=== PATIENT | female | born 1995 | race Caucasian/White ===

== ENCOUNTER 2023-05-05 05:14 | Outpatient (CLI) | payer MEDICAID, SELFPAY ==
[2023-05-05 10:55] LABS: Panorama Kit Sent via Fed Ex
[2023-05-05 11:17] LABS: Glucose,1 Hr (Glucola) 103 mg/dL (80-140)
[2023-05-05 11:18] LABS: HCT 34.4 % (36.0-46.0); MCH 31.7 pg (27.0-33.0); MCHC 34.9 % (32.0-36.0); MCV 91 fL (80-95); Platelet Count 470 10^3/uL (130-400); RBC 3.78 10^6/uL (3.93-5.22); RDW-SD 39.6 fL; WBC 15.39 10^3/uL (4.4-10.8)
[2023-05-05 11:32] LABS: TSH (W/Ref FT4) 0.26 uIU/mL (0.36-3.74)
[2023-05-05 11:47] LABS: FREE T4 0.86 ng/dL (0.76-1.46)
[2023-05-29 14:09] LABS: Result Summary NEGATIVE; Specimen WB Whole Blood
== END 2023-05-05 05:15 | disposition home or self-care (01) ==
LOC: LBO 05:14
PROVIDERS: Visit Provider Advanced Practice Midwife
DX: M06.9 Rheumatoid arthritis, unspecified (principal); Z34.91 Encounter for supervision of normal pregnancy, unspecified, first trimester; Z68.31 Body mass index [BMI] 31.0-31.9, adult
CPT/HCPCS: 36415; 81220; 81222; 82950; 85027; 86850; 86900; 86901; 84439; 84443

== ENCOUNTER 2023-05-05 11:16 | Outpatient (REF) | payer MEDICAID, SELFPAY ==
--- NOTE | 2023-05-05 10:00 | PAPFT_PTH ---
PATIENT: Nohemi Rodriguez LOC: [facility] U#:[id number] AGE/SX: 27/F ROOM: RE05/05/[address]: Tonia Camara CNM : 1995 BED: DIS: 05/05/2023 SPEC #: [id number] RECD: 05/05/23 12:51 STATUS: JASVIR EUGENE #: [id number] CONRAD: 05/05/23 10:[address]: Vanesa Cedeno DEPT: [facility] Cytology RECD BY: Karen Armenta ENTERED: 05/05/23 12:51 SP TYPE: PAPFT OT DR: Unknown,Unknown Tissues: 1 - CX/ENDOCX FOR PAP SMEARS Procedures: PAP THIN PREP/UVM Screening Comments: [id number] (CHLAMYDIA/GC)
[2023-05-05 12:28] LABS: *AMPHETAMINES SCREEN URINE Negative (Negative); *BARBITURATES SCREEN URINE Negative (Negative); *BENZODIAZEPINES SCREEN URINE Negative (Negative); Cannabinoids THC Positive (Negative); Cocaine Screen,Urine Negative (Negative); METHADONE URINE SCREEN Negative (Negative); OPIATES URINE SCREEN Negative (Negative); Tricyclic Antidepressants Negative (Negative)
[2023-05-06 15:20] LABS: Chlamydia Result Negative (Negative); GC Result Negative (Negative)
[2023-05-10 11:31] LABS: Buprenorphine Negative ng/mL (Cutoff: 5.0); Norbuprenorphine Negative ng/mL (Cutoff: 2.5)
[2023-05-13 11:27] LABS: Fentanyl Confirmation Negative ng/mL (<2); Norfentanyl Confirmation Negative ng/mL (<10)
== END 2023-05-05 11:17 | disposition home or self-care (01) ==
LOC: LBN 11:16
PROVIDERS: Obstetrics & Gynecology Gynecology; Visit Provider Advanced Practice Midwife
DX: F12.90 Cannabis use, unspecified, uncomplicated (principal); Z34.91 Encounter for supervision of normal pregnancy, unspecified, first trimester; Z72.0 Tobacco use
CPT/HCPCS: 80307; 80348; 80354; 87491; 87591; 88142

== ENCOUNTER 2023-06-23 15:48 | Outpatient (CLI) | payer MEDICAID, SELFPAY ==
[2023-06-23 16:30] LABS: TSH (W/Ref FT4) 0.54 uIU/mL (0.36-3.74)
== END 2023-06-23 15:49 | disposition home or self-care (01) ==
LOC: LBO 15:49
PROVIDERS: Visit Provider Advanced Practice Midwife
DX: R79.89 Other specified abnormal findings of blood chemistry (principal)
CPT/HCPCS: 36415; 84443

== ENCOUNTER 2023-08-19 05:13 | Outpatient (CLI) | payer MEDICAID, SELFPAY ==
[2023-08-19 10:49] LABS: HCT 29.9 % (36.0-46.0); MCH 31.4 pg (27.0-33.0); MCHC 33.4 % (32.0-36.0); MCV 94 fL (80-95); Platelet Count 419 10^3/uL (130-400); RBC 3.18 10^6/uL (3.93-5.22); RDW 12.9 % (11.7-14.6); WBC 12.11 10^3/uL (4.4-10.8)
[2023-08-19 11:14] LABS: Glucose,1 Hr (Glucola) 79 mg/dL (80-140)
== END 2023-08-19 05:14 | disposition home or self-care (01) ==
LOC: LBO 05:14
PROVIDERS: Visit Provider Advanced Practice Midwife
DX: Z34.90 Encounter for supervision of normal pregnancy, unspecified, unspecified trimester (principal)
CPT/HCPCS: 36415; 82950; 85027

== ENCOUNTER → 2023-09-30 02:03 | Outpatient (CLI) | payer MEDICAID, SELFPAY ==
--- NOTE | 2023-09-30 07:00 | DI.US_ITS ---
Exam(s) US OB MIRANDA WEIGHT EXAM: US OB MIRANDA WEIGHT CLINICAL HISTORY: medication exposure in ,RHEUMATOID ARTHRITIS,M06.9. TECHNIQUE: Transabdominal obstetrical ultrasound was performed. COMPARISON: No exams were available for comparison FINDINGS: There is a single viable intrauterine gestation with cardiac activity identified-116 bpm The fetus is presently in cephalic position . Amniotic fluid: There is a normal amount of amniotic fluid with an MIRANDA of 18.54cm. Placental location: The placenta is anterior grade 2,with no evidence of placenta previa.Distance fro m the tip of the placenta to the internal cervical os is [address] this at approximately 33 weeks and 5 days gestational age, implying OCTAVIA of 11/13/2023. BPD measures 34 weeks and 1 day HC measures 35 weeks and 0 days AC measures 33 weeks and 1 day FL measures 32 weeks and 1 day Estimated weight is 2120 gm-4 pounds 11 ounces Fetus is at the 48th percentile on the Hadlock scale. IMPRESSION:: Viable 3rd trimester gestation, as described above. DATA REPOSITORY:
== END ==
PROVIDERS: Visit Provider Advanced Practice Midwife
DX: M06.9 Rheumatoid arthritis, unspecified (principal); Z34.93 Encounter for supervision of normal pregnancy, unspecified, third trimester
CPT/HCPCS: 76816

== ENCOUNTER 2023-10-14 11:11 | Outpatient (REF) | payer MEDICAID, SELFPAY ==
[2023-10-14 13:37] LABS: *AMPHETAMINES SCREEN URINE Negative (Negative); *BARBITURATES SCREEN URINE Negative (Negative); *BENZODIAZEPINES SCREEN URINE Negative (Negative); Cannabinoids THC Positive (Negative); Cocaine Screen,Urine Negative (Negative); METHADONE URINE SCREEN Negative (Negative); OPIATES URINE SCREEN Negative (Negative)
[2023-10-14 13:38] LABS: Tricyclic Antidepressants Negative (Negative)
[2023-10-15 12:13] LABS: Fentanyl Scr w/Rfx Confirm Negative ng/mL (<1)
[2023-10-18 11:49] LABS: Buprenorphine Negative ng/mL (Cutoff: 5.0); Norbuprenorphine Negative ng/mL (Cutoff: 2.5)
== END 2023-10-14 11:12 | disposition home or self-care (01) ==
LOC: LBN 11:11
PROVIDERS: Visit Provider Advanced Practice Midwife
DX: P04.9 Newborn affected by maternal noxious substance, unspecified (principal)
CPT/HCPCS: 80307; 80348

== ENCOUNTER 2023-10-31 11:32 | Outpatient (REF) | payer MEDICAID, SELFPAY | END 2023-10-31 11:33 | disposition home or self-care (01) | LOC: LBN 11:32 | PROVIDERS: Visit Provider Advanced Practice Midwife | DX: Z34.93 Encounter for supervision of normal pregnancy, unspecified, third trimester (principal); Z3A.37 37 weeks gestation of pregnancy; Z36.85 Encounter for antenatal screening for Streptococcus B | CPT/HCPCS: 87081 ==

== ENCOUNTER 2023-11-15 07:47 | Outpatient (CLI) | payer MEDICAID, SELFPAY ==
[2023-11-15 10:54] VITALS: BP 122/79; PULSE 101; TEMP 36.5
--- NOTE | 2023-11-15 11:03 | PDOC.NST_ITS ---
Date of service: 11/15/23 Time of Service: 10:45 NST Evaluation Reason for NST Reasons for Nonstress Test: OTHER, SEE COMMENT Reason for NST Other: Labor check, ? IOL Gestational Age Gestational Age in Weeks and Days: 39 Weeks and 3Days Test and Monitor Explained Test/Monitor Explained: Test Explained, Monitor Explained and Patient Verbalized Understanding Vital Signs Blood Pressure: 122/79 Pulse: 101 Temperature: 97.7 F NST Information Date on Monitor: 11/15/23 Time on Monitor: 10:07 Date off Monitor: 11/15/23 Time off Monitor: 10:41 Total Time on Monitor: 34 NST Interventions: None Contraction Frequency: None NST Evaluation Patient States Movement: Present FHR Baseline: 125 Variability: Moderate 6-25 bpm Accelerations: 15x15 Decelerations: None NST Results: Reactive Note Ultrasound Done: N/A. NST Note Note: NST is reactive and reassuring. VE done per patient request as she is hoping for IOL if favorable due to GBS + status making her anxious. VE closed, 70% VTX -3 ROP. I reviewed that IOL is not best option today. She is agreeable to this and does not want a lengthy induction. She has plan to be seen in the office on 11/16 and be reassessed. We discussed signs of labor, ROM and when to contact websphere consultant provider. We discussed GBS and how it can become infection but does not in most cases. Risks and benefits reviewed. Feels reassured and is discharged ambulatory without concerns. JAIR NST Reviewed and Verified by: Araceli Ferrell
[2023-11-15 11:07] VITALS: BP 122/79; PULSE 101; TEMP 36.5
== END 2023-11-15 10:50 ==
LOC: BCD 07:49 → OBS 10:22 → BCD 10:23 → OBS 10:26
PROVIDERS: PCP Advanced Practice Midwife; Visit Provider Advanced Practice Midwife
DX: O47.1 False labor at or after 37 completed weeks of gestation (principal); Z3A.39 39 weeks gestation of pregnancy
CPT/HCPCS: 59025

== ENCOUNTER 2023-11-19 08:03 | Inpatient (IN) | payer MEDICAID, SELFPAY ==
[2023-11-19] VITALS (64 sets, daily range): BP systolic 111–124; BP diastolic 63–76; PULSE 0–107; RESP 16–20; TEMP 36.6–36.9; O2SAT 97–99
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
[2023-11-19] MEDS: miSOPROStol 25 MCG TAB 50 MCG PO (09:12)
[2023-11-19 09:31] LABS: HCT 30.4 % (36.0-46.0); HGB 10.2 g/dL (11.2-15.7); MCH 30.6 pg (27.0-33.0); MCHC 33.6 % (32.0-36.0); MCV 91 fL (80-95); MPV 9.6 fL (8.0-11.0); Platelet Count 419 10^3/uL (130-400); RBC 3.33 10^6/uL (3.93-5.22); RDW 13.9 % (11.7-14.6); RDW-SD 46.5 fL; WBC 12.11 10^3/uL (4.4-10.8)
[2023-11-19 10:11] LABS: *AMPHETAMINES SCREEN URINE Negative (Negative); *BARBITURATES SCREEN URINE Negative (Negative); *BENZODIAZEPINES SCREEN URINE Negative (Negative); Cannabinoids THC Positive (Negative); Cocaine Screen,Urine Negative (Negative); METHADONE URINE SCREEN Negative (Negative); OPIATES URINE SCREEN Negative (Negative)
[2023-11-19 10:12] LABS: Tricyclic Antidepressants Negative (Negative)
[2023-11-19] MEDS: miSOPROStol 25 MCG TAB PO (15:57)
--- NOTE | 2023-11-19 20:10 | W.PM.OBNL1 ---
Date of service: 11/19/23 Time of Service: 20:10 Informed Consent Informed Consent: Induction of Labor and Risk,Benefits,Alternatives Discussed Pelvic Exam Dilation: 3 Effacement (%): 50 station: -3 Position: ROP Cervix Position: posterior Consistency: medium BISHOPS Score(Cervical Ripeness Score): 4 Contractions Monitor Mode: External Contraction Frequency(min): q2-4 Contraction Duration(sec): 40-60 Intensity: Mild/Moderate Fetus A Monitor: External (US) Heart Rate Baseline: 130 Variability: Moderate (6-25 BPM) Categories: Category I Accelerations: 15 X 15 Decelerations: None Amniotic Membrane Status: Intact Assessment and Plan Assessment and plan (1) Encounter for elective induction of labor: Status: Acute Assessment and plan: A: Cervical ripening, elective IOL, multipara, GBS+ Misoprostel x2 today, mehta score has advanced from 1 to 4 Pt is comfortable, vital signs stable, category 1 tracing P: Options to continue induction process discussed with pt Will proceed with cervidil insertion and EFM for the night Switch from toco/u/s to Novii for pt comfort GBS prophylaxis and epidural anesthesia with early active labor onset Dr. Cedeno aware of plan of care and in agreement Anticipate Objective Abnormal lab results 11/19/23 11/19/23 Range/Units 09:00 09:20 WBC 12.11 H (4.4-10.8) 10^3/uL RBC 3.33 L (3.93-5.22) 10^6/uL Hgb 10.2 L (11.2-15.7) g/dL Hct 30.4 L (36.0-46.0) % Plt Count 419 H (130-400) 10^3/uL Ur THC Screen Positive A (Negative) Temp Pulse Resp BP Pulse Ox 98.2 F 107 H 16 111/72 97 11/19/23 19:14 11/19/23 19:14 11/19/23 19:14 11/19/23 19:14 11/19/23 19:14 Laboratory Results WBC 12.11 10^3/uL (4.4-10.8) H 11/19/23 09:00 RBC 3.33 10^6/uL (3.93-5.22) L 11/19/23 09:00 Hgb 10.2 g/dL (11.2-15.7) L 11/19/23 09:00 Hct 30.4 % (36.0-46.0) L 11/19/23 09:00 MCV 91 fL (80-95) 11/19/23 09:00 MCH 30.6 pg (27.0-33.0) 11/19/23 09:00 MCHC 33.6 % (32.0-36.0) 11/19/23 09:00 RDW 13.9 % (11.7-14.6) 11/19/23 09:00 Plt Count 419 10^3/uL (130-400) H 11/19/23 09:00 MPV 9.6 fL (8.0-11.0) 11/19/23 09:00 Urine Opiates Screen Negative (Negative) 11/19/23 09:20 Urine Methadone Screen Negative (Negative) 11/19/23 09:20 Ur Barbiturates Screen Negative (Negative) 11/19/23 09:20 Ur Tricyclics Screen Negative (Negative) 11/19/23 09:20 Ur Amphetamines Screen Negative (Negative) 11/19/23 09:20 U Benzodiazepines Scrn Negative (Negative) 11/19/23 09:20 Urine Cocaine Screen Negative (Negative) 11/19/23 09:20 Ur THC Screen Positive (Negative) A 11/19/23 09:20 ABO/Rh O Positive 11/19/23 09:00 Antibody Screen NEGATIVE 11/19/23 09:00 Vital Signs Reviewed: Yes Subjective Interval history since last seen: Throughout the day pt has ambulated, rested, moved about the room, visited with family, tolerated PO intake well. Contractions have increased in strength and frequency but not consistently. No bleeding, no ROM.
[2023-11-19] MEDS: Dinoprostone-CERVICAL 10 MG VSUPP VG (20:42)
[2023-11-20] VITALS (184 sets, daily range): BP systolic 110–129; BP diastolic 66–77; PULSE 0–142; RESP 16–18; TEMP 36.5–36.9; O2SAT 98–100; BMI 32.9
[2023-11-20] MEDS: miSOPROStol 25 MCG TAB PO (09:19)
--- NOTE | 2023-11-20 10:35 | W.PM.OBNL1 ---
Date of service: 11/20/23 Time of Service: 10:35 Informed Consent Informed Consent: Induction of Labor and Risk,Benefits,Alternatives Discussed Pelvic Exam station: -1 Vaginal Exam Presentation: Cephalic Comments: unable to reach cervix due to patient discomfort with exam and cervix is very posterior Contractions Monitor Mode: External Contraction Frequency(min): every 5 min Contraction Duration(sec): 50-60 Intensity: Mild/Moderate Fetus A Monitor: External (US) Heart Rate Baseline: 130 Presentation: Cephalic Variability: Moderate (6-25 BPM) Categories: Category I FHR Rhythm: Regular Accelerations: 15 X 15 Decelerations: None Amniotic Membrane Status: Intact Assessment and Plan Assessment and plan (1) Encounter for elective induction of labor: Status: Acute Assessment and plan: Continue to assess labor pattern and will attempt cervical check when labor progresses. Patient was given the option of returning home to rest or starting pitocin or continuing cervical ripening with misoprostol. She requested a break from monitoring so misoprostol will be administered so she may have a break from the monitor. Will re-examine in 4 hours when next misoprostol dose is due. She plans epidural when necessary. (2) Group B streptococcal infection during : Status: Acute Assessment and plan: Will start saline lock now and administer antibiotics for GBS prophylaxis when signs of active labor occur. Objective Temp Pulse Resp BP Pulse Ox 98.2 F 142 H 18 129/77 100 11/20/23 10:01 11/20/23 10:34 11/20/23 10:01 11/20/23 10:01 11/20/23 10:01 Laboratory Results WBC 12.11 10^3/uL (4.4-10.8) H 11/19/23 09:00 RBC 3.33 10^6/uL (3.93-5.22) L 11/19/23 09:00 Hgb 10.2 g/dL (11.2-15.7) L 11/19/23 09:00 Hct 30.4 % (36.0-46.0) L 11/19/23 09:00 MCV 91 fL (80-95) 11/19/23 09:00 MCH 30.6 pg (27.0-33.0) 11/19/23 09:00 MCHC 33.6 % (32.0-36.0) 11/19/23 09:00 RDW 13.9 % (11.7-14.6) 11/19/23 09:00 Plt Count 419 10^3/uL (130-400) H 11/19/23 09:00 MPV 9.6 fL (8.0-11.0) 11/19/23 09:00 Urine Opiates Screen Negative (Negative) 11/19/23 09:20 Urine Methadone Screen Negative (Negative) 11/19/23 09:20 Ur Barbiturates Screen Negative (Negative) 11/19/23 09:20 Ur Tricyclics Screen Negative (Negative) 11/19/23 09:20 Ur Amphetamines Screen Negative (Negative) 11/19/23 09:20 U Benzodiazepines Scrn Negative (Negative) 11/19/23 09:20 Urine Cocaine Screen Negative (Negative) 11/19/23 09:20 Ur THC Screen Positive (Negative) A 11/19/23 09:20 ABO/Rh O Positive 11/19/23 09:00 Antibody Screen NEGATIVE 11/19/23 09:00 Subjective Patient Reports: No new Complaints Interval history since last seen: Nohemi slept well last night She reports that her contractions feel stronger since she awoke. Results Hemoglobin/Hematocrit: Hgb 10.2 g/dL (11.2-15.7) L 11/19/23 09:00 Hct 30.4 % (36.0-46.0) L 11/19/23 09:00 Abnormal Lab Findings: Abnormal Labs 11/19/23 11/19/23 09:00 09:20 WBC 12.11 H RBC 3.33 L Hgb 10.2 L Hct 30.4 L Plt Count 419 H Ur THC Screen Positive A
[2023-11-20 12:31] LABS: Fentanyl Scr w/Rfx Confirm Negative ng/mL (<1)
--- NOTE | 2023-11-20 13:57 | W.PM.OBNL1 ---
Date of service: 11/20/23 Time of Service: 13:58 Informed Consent Informed Consent: Induction of Labor and Risk,Benefits,Alternatives Discussed Pelvic Exam Dilation: 0.5 Effacement (%): 20 station: -2 Cervix Position: posterior Consistency: soft Vaginal Exam Presentation: Cephalic Contractions Monitor Mode: External Contraction Frequency(min): every 5-6 Contraction Duration(sec): 40-60 Intensity: Mild/Moderate Fetus A Monitor: External (US) Heart Rate Baseline: 130 Variability: Moderate (6-25 BPM) Categories: Category I FHR Rhythm: Regular Accelerations: 15 X 15 Decelerations: None Amniotic Membrane Status: Intact Assessment Note: Difficult exam due to patients discomfort and very posterior cervix. I was able to palpate the internal os which was 0.5 cms. The cervix is soft and long Assessment and Plan Assessment and plan (1) Group B streptococcal infection during : Status: Acute Assessment and plan: Will start antibiotics with signs of active labor. (2) Encounter for elective induction of labor: Status: Acute Assessment and plan: Discussed options with Nohemi of returning home or continuing cervical ripening. She would like to continue cervical ripening and will start misoprostol 50 mcg PO every 4 hours x 3 doses. Anticipate . Objective Temp Pulse Resp BP Pulse Ox 98.4 F 97 H 16 110/66 99 11/20/23 12:56 11/20/23 12:57 11/20/23 12:56 11/20/23 12:56 11/20/23 12:57 Laboratory Results WBC 12.11 10^3/uL (4.4-10.8) H 11/19/23 09:00 RBC 3.33 10^6/uL (3.93-5.22) L 11/19/23 09:00 Hgb 10.2 g/dL (11.2-15.7) L 11/19/23 09:00 Hct 30.4 % (36.0-46.0) L 11/19/23 09:00 MCV 91 fL (80-95) 11/19/23 09:00 MCH 30.6 pg (27.0-33.0) 11/19/23 09:00 MCHC 33.6 % (32.0-36.0) 11/19/23 09:00 RDW 13.9 % (11.7-14.6) 11/19/23 09:00 Plt Count 419 10^3/uL (130-400) H 11/19/23 09:00 MPV 9.6 fL (8.0-11.0) 11/19/23 09:00 Urine Opiates Screen Negative (Negative) 11/19/23 09:20 Urine Methadone Screen Negative (Negative) 11/19/23 09:20 Urine Fentanyl Screen Negative ng/mL (<1) 11/19/23 09:20 Ur Barbiturates Screen Negative (Negative) 11/19/23 09:20 Ur Tricyclics Screen Negative (Negative) 11/19/23 09:20 Ur Amphetamines Screen Negative (Negative) 11/19/23 09:20 U Benzodiazepines Scrn Negative (Negative) 11/19/23 09:20 Urine Cocaine Screen Negative (Negative) 11/19/23 09:20 Ur THC Screen Positive (Negative) A 11/19/23 09:20 ABO/Rh O Positive 11/19/23 09:00 Antibody Screen NEGATIVE 11/19/23 09:00 Subjective Patient Reports: No new Complaints Interval history since last seen: Nohemi continues to have mild to mod strength contractions which have not increased in intensity. Results Hemoglobin/Hematocrit: Hgb 10.2 g/dL (11.2-15.7) L 11/19/23 09:00 Hct 30.4 % (36.0-46.0) L 11/19/23 09:00 Abnormal Lab Findings: Abnormal Labs 11/19/23 11/19/23 09:00 09:20 WBC 12.11 H RBC 3.33 L Hgb 10.2 L Hct 30.4 L Plt Count 419 H Ur THC Screen Positive A
[2023-11-20] MEDS: miSOPROStol 25 MCG TAB 50 MCG PO (14:13)
--- NOTE | 2023-11-20 14:58 | ANES.PREOP_ITS ---
General Info Date of Service Date Performed: 11/20/23 Height: 5 ft 2 in Weight: 81.647 kg Body Mass Index (BMI): 32.9 Meds Allergies and Home Medications Allergies Allergy/AdvReac Type Severity Reaction Status Date / Time adalimumab (From Humira) Allergy Hives Unverified 11/17/23 12:34 Home Medication ?Medication ?Instructions ?Recorded Blood Builder 1 tab PO DAILY #30 tabs 05/05/23 PNV 153-FA 400 mcg-om3 35 mg-dha tab PO 05/05/23 25 mg-epa 5 mg-fish oil chew tablet ( Gummies) certolizumab pegol 400 mg/2 mL 400 mg (2 mL) subcut Q2W #1 ea 05/28/23 (200 mg/mL x2) subcutaneous syringe kit (Cimzia) ferrous sulfate 325 mg (65 mg 325 mg PO DAILY #60 tabs 08/19/23 iron) tablet ferrous sulfate 325 mg (65 mg mg PO 11/20/23 iron) tablet,delayed release Current Visit Medications: Current Medications Generic Name Dose Route Start Last Admin Trade Name Freq PRN Reason Stop Dose Admin Dinoprostone 10 mg 11/19/23 20:15 11/19/23 20:42 Dinoprostone-Cervical 10 Mg Vsupp VG 10 mg DIRECTED AMELIE Administration Ringer's Solution 1,000 mls @ 200 mls/hr 11/20/23 09:00 IV INFUSION [facility] IV Miscellaneous Supplies 1 each 11/20/23 09:00 Iv Access IV DIRECTED AMELIE Misoprostol 50 mcg 11/20/23 14:00 11/20/23 14:13 Misoprostol 25 Mcg Tab PO 50 mcg Q4H AMELIE Administration Sodium Chloride 0 ml 11/20/23 08:56 Normal Saline Flush 10 Ml Syr IVP PRN PRN Sodium Chloride 0 ml 11/20/23 20:00 Normal Saline Flush 10 Ml Syr IVP BID AMELIE Sodium Chloride 0 ml 11/20/23 08:56 Normal Saline 10 Ml Vial IJ DIRECTED PRN Terbutaline Sulfate 0.25 mg 11/19/23 08:41 Terbutaline 1 Mg/Ml Vial SC PRN PRN Zolpidem Tartrate 10 mg 11/20/23 21:00 Zolpidem 5 Mg Tab PO 11/21/23 06:00 2100 AMELIE PFSH Active Problems Active Problems: Problem Status Onset Code Group B streptococcal infection during Acute O98.819, B95.1 Encounter for elective induction of labor Acute Z34.90 Anemia affecting Acute O99.019 Current nicotine vaping on some days Acute Z72.0 Marijuana use during Acute O99.320, F12.90 BMI 31.0-31.9,adult Acute Z68.31 Rahman's cyst of knee Acute M71.20 Drug exposure, gestational Acute P04.9 Acute Z34.90 Rheumatoid arthritis Chronic M06.9 Medical History Medical History (Updated 11/20/23 @ 10:40 by Araceli Dubon CNM) Low TSH level History of anemia Family history of thyroid disease in grandmother gr-mother had thyroidectomy History of depression Treated with lorazepam and buspirone History of depression no meds currently Tobacco Smoking/Tobacco Use Status: Current every day Tobacco Type: e-cigarettes Alcohol Alcohol Intake: never Substance Use Substance use type: marijuana Prental History History 2 2 Para 1 Hx # Term Pregnancies 1 Multiple births 0 Hx # Pregnancies 0 Ectopic pregnancies 0 AB induced 0 Hx Number of Living Children 1 AB spontaneous 0 Past Pregnancies Del. Date GA/Weeks # Preg Succ Route Wgt Sex Labor Lgth Anesth esia Location [facility] 01/27/18 40 No Yes vaginal 3288.545 g Male >18 hrs [place], [place] Delivery Date: 01/27/18 Last Updated by: Tonia Camara Epidural didn't work, pitocin oct after stalling at 7 cm, persistent OP, Rolando Vital Signs and Lab Results Vital Signs Most Recent Vital Signs in EMR: Most Recent Vital Signs Temp Pulse Resp BP Pulse Ox 36.9 C 97 H 16 110/66 99 11/20/23 12:56 11/20/23 12:57 11/20/23 12:56 11/20/23 12:56 11/20/23 12:57 Lab Results 11/19/23 09:00 Blood Type / Crossmatch: 2 Antibody Screen NEGATIVE 11/19/23 Complete Blood Count: 2 White Blood Count 12.11 10^3/uL (4.4-10.8) H 11/19/23 09:00 Red Blood Count 3.33 10^6/uL (3.93-5.22) L 11/19/23 09:00 Hemoglobin 10.2 g/dL (11.2-15.7) L 11/19/23 09:00 Hematocrit 30.4 % (36.0-46.0) L 11/19/23 09:00 Platelet Count 419 10^3/uL (130-400) H 11/19/23 09:00 Complete Metabolic Panel: 2 No Data to Display Liver Function Panel: 2 No Data to Display Coagulation Panel: 2 No Data to Display Cardiac Panel: 2 No Data to Display Arterial Blood Gas: 2 No Data to Display Venous Blood Gas: 2 No Data to Display Pancreas Panel: 2 No Data to Display Thyroid Panel: 2 No Data to Display Infectious Disease: 2 No Data to Display Blood Cultures: 2 No Data to Display Toxicology Panel: 2 Urine Amphetamines Screen Negative (Negative) 11/19/23 09:20 Urine Benzodiazepines Screen Negative (Negative) 11/19/23 09:2 0 Urine Barbiturates Screen Negative (Negative) 11/19/23 09:20 Urine Cocaine Screen Negative (Negative) 11/19/23 09:20 Urine Methadone Screen Negative (Negative) 11/19/23 09:20 Urine Opiates Screen Negative (Negative) 11/19/23 09:20 Ur Tricyclic Antidepressants Screen Negative (Negative) 09:20 Ur Tetrahydrocannabinol (THC) Scrn Positive (Negative) A 11/18 09:20 Panel: 2 No Data to Display Anesthesia Assessment and Plan Anesthesia History Personal History: No History of Anesthesia Complications Family History: No Family History of Anesthesia Complications Exercise Tolerance Exercise Tolerance: Metabolic Equivalents>4 Pertinent Negatives Pertinent Negatives: No Symptoms of GERD Cardiac & Pulmonary Exam Cardiac Exam: Normal S1/S2 Heart Sounds Pulmonary Exam: Clear Bilateral Breath Sounds Cardiac and Pulmonary Comment:: Vapes both nicotine and THC. Implantable Cardiac Device Does patient have a Pacemaker or an ICD?: No Airway Exam Known Difficult Airway: No Mallampati Class: 2 Mouth Opening: Normal (> 3cm) Thyromental Distance: Greater than 3 cm Neck Range of Motion: Full ROM Neck Circumference: Normal Teeth Condition: Normal Dentition ASA Classification ASA Score: ASA 2 Emergency Case?: No NPO Status NPO Status: NPO Small Non-Fatty Meal >6 hours Status Status: Confirmed (Full term) Anesthesia Plan Resuscitation Status: Full Code Anesthesia Technique: Labor Epidural Airway Planned: Natural Airway Monitors Used: Standard Monitors Preoperative Comments:: with history of prior Epidural that pt states did not work well. Details are unclear and patient does not remember specific events after placement. Questions answered. Consented for labor epidural and/or SAB if needed for . Trav Bradley, MAULIK
--- NOTE | 2023-11-20 18:36 | DSE_ITS ---
Date of service: 11/20/23 Time of Service: 18:36 DS: Diagnosis Discharge Diagnosis (1) Group B streptococcal infection during : Status: Acute Asessment and Plan: IV disconnected and Nohemi is discharged (2) Encounter for elective induction of labor: Status: Acute Asessment and Plan: Nohemi received misoprostol 50 mcg after going outside for a walk. Her contractions have not increased in frequency. heart rate 130s and category 1. Contractions irregular, every 4-5 minutes and mild to moderates strength. membranes are intact. She is feeling tired and discouraged. We discussed the option of continuing cervical ripening or pitocin or going home to rest and resuming the cervical ripening when she is ready. She and her partner wish to return home to rest. She was offered ambien 10 mg for rest tonight and she wishes to take that. She was instructed to return with strong regular contractions or ruptured membranes. She will call tomorrow when she awakes and we will discuss when she would like to return for cervical ripening if spontaneous labor does not occur. Discharge Plan Disposition Patient Disposition: Home Condition: Good Discharge Details Reason For Visit: 40 wks,GBS positive,elective induction Admit Date/Time: 11/19/23 08:03 Admit Provider: Tonia Camara Attending Provider: Tonia Camara Primary Care Provider: Araceli Ferrell Home Meds and New Rx's Prescriptions: No Action Gummies 400 mcg-35 mg- 25 mg-5 mg tablet,chewable 1 tab PO DAILY Blood Builder 1 tab PO DAILY Qty: 30 0RF Cimzia 400 mg/2 mL (200 mg/mL x 2) syringe kit 400 mg subcut Q2W Qty: 1 0RF Rx Instructions: administer as 2 equally divided doses at 2 different sites in abdomen or thigh ferrous sulfate 325 mg (65 mg iron) tablet 325 mg PO DAILY Qty: 60 4RF ferrous sulfate 325 mg (65 mg iron) tablet,delayed release (DR/EC) 325 mg PO DAILY Patient Comments: TAKE 1 TABLET BY MOUTH ONCE DAILY Discharge Instructions Activity:: Activity as Tolerated Equipment/Supplies:: No Equipment Needed Diet:: As Tolerated Discharge Orders Discharge Orders: Discharge Order (Routine); Ordered 11/20/23 Ordered By: Araceli Dubon DS: Summary Time Spent with Patient providing and/or coordinating discharge services: Greater than 30 minutes Status at Discharge Functional status at discharge: independent ambulation Overall status at discharge: patient is back to baseline Mental Status: mental status grossly normal Speech and Movement: speech and movement normal Mood: congruent mood Affect: normal affect Quality:SDOH Health Related Social Needs: No Data to Display Exam Const General: cooperative Resp Effort & Inspection: normal respiratory effort Auscultation: clear to auscultation bilaterally GI Inspection: normal to inspection Palpation: soft and nontender External Female Exam: normal external appearance Speculum Exam - Vagina: normal appearance of the vagina Skin General skin exam: no rashes or lesions noted Extrem General: normal to inspection Psych Mental Status: mental status grossly normal Speech and Movement: speech and movement normal Mood: congruent mood Affect: normal affect DS: Data Vitals/I&O Vitals and I&O: Vital Signs Temperature 98.4 F 11/20/23 18:34 Temperature Source Oral 11/20/23 18:34 Pulse 88 11/20/23 18:34 Pulse Rhythm Regular 11/20/23 07:45 Respiratory Rate 16 11/20/23 18:34 Blood Pressure 124/69 11/20/23 18:34 Blood Pressure Mean 87 11/20/23 18:34 Pulse Oximetry 99 11/20/23 18:34 Oxygen Delivery Method Room Air 11/19/23 08:59 Oxygen Flow Rate 0 11/19/23 08:59 Pain Level 0 11/19/23 08:59 Intake & Output 11/19/23 11/20/23 11/20/23 23:59 11:59 23:59 Intake Total 1000 / 1000 550 / 550 Output Total 1100 / 1600 1000 / 1500 500 / 1500 Balance -100 / -600 -450 / -950 -500 / -950 Weight 180 lb Intake: Oral 1000 / 1000 550 / 550 Output: Urine 1100 / 1600 1000 / 1500 500 / 1500 Other: Urine Color Yellow Pale Pale Yellow Yellow Urine Appearance Clear Clear Clear Urine Odor None None None Voiding Methods Toilet Toilet Toilet Data Completed and Pending Labs on day of discharge: Labs from last 24 hours 11/19/23 09:20 Urine Fentanyl Screen Negative PFSH All Active Problems (Updated 11/20/23 @ 10:40 by Araceli Dubon CNM) Group B streptococcal infection during (Acute) Encounter for elective induction of labor (Acute) Anemia affecting (Acute) Current nicotine vaping on some days (Acute) Marijuana use during (Acute) BMI 31.0-31.9,adult (Acute) Rahman's cyst of knee (Acute) right Drug exposure, gestational (Acute) (Acute) Rheumatoid arthritis (Chronic) Medical History (Updated 11/20/23 @ 10:40 by Araceli Dubon CNM) Low TSH level History of anemia Family history of thyroid disease in grandmother gr-mother had thyroidectomy History of depression Treated with lorazepam and buspirone History of depression no meds currently Family History (Updated 06/23/23 @ 14:43 by Araceli Dubon CNM) Paternal Grandmother Thyroid condition partial thyroidectomy Maternal Grandmother Heart disease Father Hypertension Mother Depression Other Hyperlipidemia Social History (Updated 05/05/23 @ 09:40 by Jeny Eaton RN) Smoking/Tobacco Use Status: Current every day Tobacco Type: e-cigarettes Smoking risk assessment performed?: Yes Alcohol Intake: never Substance use type: marijuana Housing: house Current gender identity: female Do you feel safe at home: Yes Do you feel safe in your relationship?: No Female Reproductive History Menstrual Age of Menarche: 8 Duration of menses: 6-7 days control method: none History History 2 Para 1 Hx # Term Pregnancies 1 Multiple births 0 Hx # Pregnancies 0 Ectopic pregnancies 0 AB induced 0 Hx Number of Living Children 1 AB spontaneous 0 Past Pregnancies Del. Date GA/Weeks # Preg Succ Route Wgt Sex Labor Lgth Anesth esia Location [facility] 01/27/18 40 No Yes vaginal 7 lb 4 oz Male >18 hrs [place], [place] Delivery Date: 01/27/18 Last Updated by: Tonia Camara Epidural didn't work, pitocin oct after stalling at 7 cm, persistent OP, Rolando Time Spent with Patient Time Spent with Patient: 70-84 minutes4 Time was spent: preparing to see the patient(eg.review tests), obtaining and/or reviewing separately otained hiistory, ordering medications,tests, procedures, referring, communicating with other health pet care worker, indepentently interpreting results and counseling the patient
[2023-11-20] MEDS: Zolpidem 5 MG TAB 10 MG PO (18:51)
== END 2023-11-20 18:55 | disposition home or self-care (01) | DRG 833 ==
PROVIDERS: Admitting Provider Advanced Practice Midwife; PCP Advanced Practice Midwife; Visit Provider Advanced Practice Midwife
DX: O99.323 Drug use complicating pregnancy, third trimester (principal); F12.90 Cannabis use, unspecified, uncomplicated; O61.0 Failed medical induction of labor; O99.820 Streptococcus B carrier state complicating pregnancy; O99.343 Other mental disorders complicating pregnancy, third trimester; O99.333 Smoking (tobacco) complicating pregnancy, third trimester; O99.013 Anemia complicating pregnancy, third trimester; O26.893 Other specified pregnancy related conditions, third trimester; D64.9 Anemia, unspecified; Z3A.40 40 weeks gestation of pregnancy; M06.9 Rheumatoid arthritis, unspecified; F41.9 Anxiety disorder, unspecified; F17.290 Nicotine dependence, other tobacco product, uncomplicated
CPT/HCPCS: 36415; 80307; 85027; 86850; 86900; 86901; G0378; J3490

== ENCOUNTER 2023-11-22 16:21 | Outpatient (CLI) | payer MEDICAID, SELFPAY ==
[2023-11-22 17:11] VITALS: BP 128/77; PULSE 106; TEMP 36.7
[2023-11-22 17:12] VITALS: BP 128/77; PULSE 106
[2023-11-22 17:54] VITALS: BP 128/77; PULSE 106; TEMP 36.7
--- NOTE | 2023-11-22 20:55 | W.OBNST ---
Date of service: 11/22/23 Time of Service: 20:56 NST Evaluation Reason for NST Reasons for Nonstress Test: OTHER, SEE COMMENT Reason for NST Other: patient post date Gestational Age Gestational Age in Weeks and Days: 40 Weeks and 3Days Test and Monitor Explained Test/Monitor Explained: Test Explained, Monitor Explained and Patient Verbalized Understanding Vital Signs Blood Pressure: 128/77 Pulse: 106 Temperature: 98.1 F Urine Results Urine Protein: Positive Urine Ketones: Positive Urine Glucose: Negative Urine Blood: Negative NST Information Date on Monitor: 11/22/23 Time on Monitor: 17:13 Date off Monitor: 11/22/23 Time off Monitor: 17:54 Total Time on Monitor: 41 NST Interventions: PO Hydration Contraction Frequency: irrritability noted per toco NST Evaluation Patient States Movement: Present FHR Baseline: 125 Variability: Moderate 6-25 bpm Accelerations: 15x15 Decelerations: None NST Results: Reactive Note Ultrasound Done: N/A. NST Note Note: Pt requesting labor check, reports increased mucous plug-type discharge today with pelvic pressure and occasional contractions. Cvx 2 cm at internal os, not well effaced (30%), posterior, vtx ROP at -3, intact membranes (no change from previous exam 2 days ago) Pt is s/p failed attempt at elective IOL via cervical ripening last week (miso & cervidil x36 hrs) She wishes to return tomorrow morning for pitocin induction trial @ 40+4 wks, has anxiety regarding GBS & logistical concerns (lack of childcare or social supports). Discharged to home. NST Reviewed and Verified by: Tonia Camara
[2023-11-22 21:03] VITALS: BP 128/77; PULSE 106; TEMP 36.7
[2023-11-23 09:36] VITALS: BP 124/77; PULSE 114
[2023-11-23 12:26] VITALS: BP 122/68; PULSE 80
[2023-11-23 14:56] VITALS: BP 127/72; PULSE 73
== END 2023-11-22 17:58 ==
LOC: BCD 16:21 → OBS 16:48
PROVIDERS: PCP Advanced Practice Midwife; Visit Provider Advanced Practice Midwife
DX: O48.0 Post-term pregnancy (principal); Z3A.40 40 weeks gestation of pregnancy
CPT/HCPCS: 59025

== ENCOUNTER 2023-11-23 07:56 | Inpatient (IN) | payer MEDICAID, SELFPAY ==
[2023-11-23 09:38] VITALS: BP 124/77; PULSE 114; RESP 16; TEMP 36.5; O2SAT 99
[2023-11-23] MEDS: DEXTROSE 5%-LACTATED RINGERS 1,000 ML 999 ML IV (10:13)
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
[2023-11-23 11:02] LABS: HCT 28.1 % (36.0-46.0); HGB 9.3 g/dL (11.2-15.7); MCH 30.9 pg (27.0-33.0); MCHC 33.1 % (32.0-36.0); MCV 93 fL (80-95); MPV 9.2 fL (8.0-11.0); Platelet Count 320 10^3/uL (130-400); RBC 3.01 10^6/uL (3.93-5.22); RDW-SD 47.3 fL; WBC 9.45 10^3/uL (4.4-10.8)
[2023-11-23] MEDS: Lactated Ringers 1,000 ML 125 ML IV (11:20)
[2023-11-23] MEDS: Oxytocin/Normal Saline 30 UNIT/500 ML BAG 2 UNITS IV (11:26)
[2023-11-23] MEDS: Normal Saline Flush 10 ML SYR IVP (11:56)
[2023-11-23 12:26] VITALS: BP 122/68; PULSE 80
[2023-11-23 15:00] VITALS: BP 127/72; PULSE 73; RESP 17; TEMP 36.7; O2SAT 99
--- NOTE | 2023-11-23 15:59 | PGE_ITS ---
Date of service: 11/23/23 Time of Service: 15:59 Informed Consent Informed Consent: Induction of Labor (elective) and Risk,Benefits,Alternatives Discussed Pelvic Exam Dilation: 2.5 (internal os not easily reached d/t thickness/positon of cvx but palpated at nearly 3 cm) Effacement (%): 30 station: -3 Position: ROP Cervix Position: posterior Consistency: medium Contractions Monitor Mode: External Contraction Frequency(min): q2-3 Contraction Duration(sec): 50-70 Intensity: Mild/Moderate Fetus A Monitor: External (US) Heart Rate Baseline: 130 Variability: Moderate (6-25 BPM) Categories: Category I Accelerations: 15 X 15 Decelerations: None Amniotic Membrane Status: Intact Assessment and Plan Assessment and plan (1) Encounter for elective induction of labor: Status: Acute Assessment and plan: A: Pitocin @ 10 u/min, regular but mild contraction pattern since 1300 Pt mostly resting in bed or sitting up, comfortable; cat 1 tracing Cvx examined and found unchanged from yesterday P: Continue titrated pitocin infusion & encourage pt to change positions Cephalic station too high for AROM @ this time Monitor for progress, comfort measures as needed Dr. Jack called earlier for update on phone from RN (2) Group B streptococcal infection during : Status: Acute Assessment and plan: PCN prophylaxis planned with active labor onset or ROM (3) Anemia affecting : Status: Acute Assessment and plan: Admission hgb 9.3 Will consider Fe infusion Qualifiers: Trimester: third trimester Qualified Code(s): O99.013 - Anemia complicating , third trimester Objective Abnormal lab results 11/23/23 Range/Units 10:55 RBC 3.01 L (3.93-5.22) 10^6/uL Hgb 9.3 L (11.2-15.7) g/dL Hct 28.1 L (36.0-46.0) % Temp Pulse Resp BP Pulse Ox 98.1 F 73 17 127/72 99 11/23/23 15:00 11/23/23 15:00 11/23/23 15:00 11/23/23 15:00 11/23/23 15:00 Laboratory Results WBC 9.45 10^3/uL (4.4-10.8) 11/23/23 10:55 RBC 3.01 10^6/uL (3.93-5.22) L 11/23/23 10:55 Hgb 9.3 g/dL (11.2-15.7) L 11/23/23 10:55 Hct 28.1 % (36.0-46.0) L 11/23/23 10:55 MCV 93 fL (80-95) 11/23/23 10:55 MCH 30.9 pg (27.0-33.0) 11/23/23 10:55 MCHC 33.1 % (32.0-36.0) 11/23/23 10:55 RDW 14.0 % (11.7-14.6) 11/23/23 10:55 Plt Count 320 10^3/uL (130-400) 11/23/23 10:55 MPV 9.2 fL (8.0-11.0) 11/23/23 10:55 ABO/Rh O Positive 11/23/23 10:55 Antibody Screen NEGATIVE 11/23/23 10:55 Vital Signs Reviewed: Yes Subjective Interval history since last seen: Pt denies being uncomfortable, is not feeling contractions very much though oc casionally she can feel tightening in the upper abdomen. She is keeping to a clear liquid diet, tolerating well, FOB is bedside providing support.
--- NOTE | 2023-11-23 18:21 | W.PM.OBDISCH ---
Date of service: 11/23/23 Time of Service: 18:21 DS: Diagnosis Discharge Diagnosis (1) Encounter for elective induction of labor: Status: Acute Asessment and Plan: Unsuccessful and abbreviated induction attempt. Pt decided to discontinue pitocin induction and return home undelivered. Pt agrees to have appt with MD this week to discuss further induction plans vs scheduled c/s for failed induction x2 (2) Group B streptococcal infection during : Status: Acute (3) Anemia affecting : Status: Acute Discharge Plan Disposition Patient Disposition: Home Condition: Good Discharge Details Reason For Visit: Induction of Labor Admit Date/Time: 11/23/23 09:30 Admit Provider: Tonia Camara Attending Provider: Tonia Camara Primary Care Provider: Araceli Ferrell Hospital Course Hospital Course: Pitocin induction of labor was attempted, after 7 hours of infusion labor was not achieved, pt requests to be discharged to home and await spontaneous labor. Home Meds and New Rx's Prescriptions: No Action Gummies 400 mcg-35 mg- 25 mg-5 mg tablet,chewable 1 tab PO DAILY Blood Builder 1 tab PO DAILY Qty: 30 0RF Cimzia 400 mg/2 mL (200 mg/mL x 2) syringe kit 400 mg subcut Q2W Qty: 1 0RF Rx Instructions: administer as 2 equally divided doses at 2 different sites in abdomen or thigh ferrous sulfate 325 mg (65 mg iron) tablet 325 mg PO DAILY Qty: 60 4RF ferrous sulfate 325 mg (65 mg iron) tablet,delayed release (DR/EC) 325 mg PO DAILY Patient Comments: TAKE 1 TABLET BY MOUTH ONCE DAILY Discharge Instructions Activity:: Activity as Tolerated Equipment/Supplies:: No Equipment Needed Diet:: Normal Diet Discharge Orders Discharge Orders: Discharge Order (Routine); Ordered 11/23/23 Ordered By: Tonia Camara Discharge Data Discharge Date/Time-TO BE ENTERED AT DEPARTURE: 11/23/23 18:20 OB:DS Summary Contraception Discussed Contraception Discussed: No, Status at Discharge Functional status at discharge: independent ambulation Overall status at discharge: patient is back to baseline Mental Status: mental status grossly normal Speech and Movement: speech and movement normal and speech clear Mood: congruent mood Affect: normal affect Quality:SDOH Health Related Social Needs: No Data to Display Exam Physical Exam Vital signs: Temp Pulse Resp BP Pulse Ox 98.1 F 73 17 127/72 99 11/23/23 15:00 11/23/23 15:00 11/23/23 15:00 11/23/23 15:00 11/23/23 15:00 Constitutional Constitutional: no acute distress, average body habitus and cooperative HEENT Exam HEENT Exam: Normal Neck Exam Neck Exam: Normal Respiratory Exam Respiratory Exam: Normal Cardiovascular Exam Cardiovascular Exam: Normal Rectal Exam Rectal Exam: Normal Back/Spine/Pelvis Exam Back Exam: Normal Skin Exam Skin Exam: Normal Neurological Exam Neurological Exam: Normal Psychiatric Exam Psychiatric Exam: Normal PFSH All Active Problems (Updated 11/23/23 @ 16:08 by Tonia Camara) Encounter for elective induction of labor (Acute) Group B streptococcal infection during (Acute) Anemia affecting (Acute) Current nicotine vaping on some days (Acute) Marijuana use during (Acute) BMI 31.0-31.9,adult (Acute) Rahman's cyst of knee (Acute) right Drug exposure, gestational (Acute) (Acute) Rheumatoid arthritis (Chronic) Medical History (Updated 11/23/23 @ 16:08 by Tonia Camara) Low TSH level History of anemia Family history of thyroid disease in grandmother gr-mother had thyroidectomy History of depression Treated with lorazepam and buspirone History of depression no meds currently Family History (Updated 06/23/23 @ 14:43 by Araceli Dubon CNM) Paternal Grandmother Thyroid condition partial thyroidectomy Maternal Grandmother Heart disease Father Hypertension Mother Depression Other Hyperlipidemia Social History (Updated 05/05/23 @ 09:40 by Jeny Eaton RN) Smoking/Tobacco Use Status: Current every day Tobacco Type: e-cigarettes Smoking risk assessment performed?: Yes Alcohol Intake: never Substance use type: marijuana Housing: house Current gender identity: female Do you feel safe at home: Yes Do you feel safe in your relationship?: No Female Reproductive History Menstrual Age of Menarche: 8 Duration of menses: 6-7 days control method: none History History 2 Para 1 Hx # Term Pregnancies 1 Multiple births 0 Hx # Pregnancies 0 Ectopic pregnancies 0 AB induced 0 Hx Number of Living Children 1 AB spontaneous 0 Past Pregnancies Del. Date GA/Weeks # Preg Succ Route Wgt Sex Labor Lgth Anesthesia Location Prov Complic 01/27/18 40 No Yes vaginal 7 lb 4 oz Male >18 hrs [place], [place] Delivery Date: 01/27/18 Last Updated by: Tonia Camara Epidural didn't work, pitocin oct after stalling at 7 cm, persistent OP, Rolando DS: Data Vitals/I&O Vitals and I&O: Vital Signs Temperature 98.1 F 11/23/23 15:00 Temperature Source Oral 11/23/23 15:00 Pulse 73 11/23/23 15:00 Pulse Rhythm Regular 11/23/23 12:10 Respiratory Rate 17 11/23/23 15:00 Respiratory Depth Normal 11/23/23 12:10 Blood Pressure 127/72 11/23/23 15:00 Blood Pressure Mean 90 11/23/23 15:00 Pulse Oximetry 99 11/23/23 15:00 Oxygen Delivery Method Room Air 11/23/23 09:38 Oxygen Flow Rate 0 11/23/23 09:38 Intake & Output 11/22/23 11/23/23 11/23/23 23:59 11:59 23:59 Intake Total 0.933 / 2431.099 2430.166 / 2431.099 Output Total 400 / 1300 900 / 1300 Balance -399.067 / 2376.982 2049.166 / 1131.099 Weight 180 lb Intake: IV 0.933 / 0271.758 9069.166 / 1931.099 Oral 500 / 500 Output: Urine 400 / 1300 900 / 1300 Other: Urine Color Yellow Yellow Urine Appearance Clear Urine Odor None Data Completed and Pending Labs on day of discharge: Labs from last 24 hours 11/23/23 10:55 WBC 9.45 RBC 3.01 L Hgb 9.3 L Hct 28.1 L MCV 93 MCH 30.9 MCHC 33.1 RDW 14.0 Plt Count 320 MPV 9.2 ABO/Rh O Positive Antibody Screen NEGATIVE
== END 2023-11-23 18:20 | disposition home or self-care (01) | DRG 832 ==
PROVIDERS: Admitting Provider Advanced Practice Midwife; PCP Advanced Practice Midwife; Visit Provider Advanced Practice Midwife
DX: O48.0 Post-term pregnancy; O99.13 Other diseases of the blood and blood-forming organs and certain disorders involving the immune mechanism complicating the puerperium; Z3A.40 40 weeks gestation of pregnancy; D64.9 Anemia, unspecified; O26.893 Other specified pregnancy related conditions, third trimester; M06.9 Rheumatoid arthritis, unspecified; O61.0 Failed medical induction of labor
CPT/HCPCS: 36415; 85027; 86850; 86900; 86901; G0378

== ENCOUNTER 2023-11-26 14:09 | Outpatient (CLI) | payer MEDICAID, SELFPAY | END 2023-11-26 14:10 | disposition home or self-care (01) | LOC: LBO 14:10 | PROVIDERS: PCP Advanced Practice Midwife; Visit Provider Obstetrics & Gynecology Gynecology | DX: Z01.818 Encounter for other preprocedural examination (principal) | CPT/HCPCS: 36415; 86850; 86900; 86901 ==

== ENCOUNTER 2023-11-28 10:35 | Inpatient (IN) | payer MEDICAID, SELFPAY ==
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
[2023-11-28] VITALS (10 sets, daily range): BP systolic 111–120; BP diastolic 75–82; PULSE 63–86; RESP 14–17; TEMP 36.3–36.9; O2SAT 99–100; BMI 32.9
[2023-11-28] MEDS: Lactated Ringers 1,000 ML 200 ML IV ×2 (11:30→15:55)
[2023-11-28] MEDS: AZITHROMYCIN 500 MG in Normal Saline 250 ML 250 MG IVPB (12:15)
--- NOTE | 2023-11-28 14:37 | W.ANESPRE ---
General Info Date of Service Date Performed: 11/28/23 Height: 5 ft 2 in Weight: 81.647 kg Body Mass Index (BMI): 32.9 Surgical Procedure: Operation Date: 11/28/23 13:25 Proposed Procedure Side Surgeon p Section Vanesa Cedeno MD Meds Allergies and Home Medications Allergies Allergy/AdvReac Type Severity Reaction Status Date / Time adalimumab (From Humira) Allergy Hives Unverified 11/26/23 12:44 Home Medication ?Medication ?Instructions ?Recorded Blood Builder 1 tab PO DAILY #30 tabs 05/05/23 PNV 153-FA 400 mcg-om3 35 mg-dha 1 tab PO DAILY 05/05/23 25 mg-epa 5 mg-fish oil chew tablet ( Gummies) certolizumab pegol 400 mg/2 mL 400 mg (2 mL) subcut Q2W #1 ea 05/28/23 (200 mg/mL x2) subcutaneous syringe kit (Cimzia) ferrous sulfate 325 mg (65 mg 325 mg PO DAILY #60 tabs 08/19/23 iron) tablet ferrous sulfate 325 mg (65 mg 325 mg PO DAILY 11/20/23 iron) tablet,delayed release Current Visit Medications: Current Medications Generic Name Dose Route Start Last Admin Trade Name Freq PRN Reason Stop Dose Admin Citric Acid/Sodium Citrate 30 ml 11/28/23 11:00 Sodium Citrate 30 Ml Cup PO PREOP AMELIE Cefazolin Sodium/Dextrose 2 gm in 50 mls @ 100 mls/hr 11/28/23 10:30 Ancef Duplex IVPB PREOP AMELIE Azithromycin 500 mg/ Sodium 250 mls @ 250 mls/hr 11/28/23 10:30 11/28/23 12:15 Chloride IVPB 250 mls/hr PREOP AMELIE Administration Ringer's Solution 1,000 mls @ 200 mls/hr 11/28/23 10:30 IV INFUSION AMELIE IV Miscellaneous Supplies 1 each 11/28/23 10:30 Iv Access IV DIRECTED AMELIE Sodium Chloride 0 ml 11/28/23 10:30 Normal Saline Flush 10 Ml Syr IVP PRN PRN Sodium Chloride 0 ml 11/28/23 20:00 Normal Saline Flush 10 Ml Syr IVP BID AMELIE Sodium Chloride 0 ml 11/28/23 10:30 Normal Saline 10 Ml Vial IJ DIRECTED PRN PFSH Active Problems Active Problems: Problem Status Onset Code Encounter for elective induction of labor Acute Z34.90 Group B streptococcal infection during Acute O98.819, B95.1 Anemia affecting Acute O99.019 Current nicotine vaping on some days Acute Z72.0 Marijuana use during Acute O99.320, F12.90 BMI 31.0-31.9,adult Acute Z68.31 Rahman's cyst of knee Acute M71.20 Drug exposure, gestational Acute P04.9 Acute Z34.90 Rheumatoid arthritis Chronic M06.9 Medical History Medical History (Updated 11/26/23 @ 14:47 by Vanesa Cedeno MD) Preop examination Low TSH level History of anemia Family history of thyroid disease in grandmother gr-mother had thyroidectomy History of depression Treated with lorazepam and buspirone History of depression no meds currently Tobacco Smoking/Tobacco Use Status: Current every day Tobacco Type: e-cigarettes Alcohol Alcohol Intake: never Substance Use Substance use type: marijuana Prental History History 2 Para 1 Hx # Term Pregnancies 1 Multiple births 0 Hx # Pregnancies 0 Ectopic pregnancies 0 AB induced 0 Hx Number of Living Children 1 AB spontaneous 0 Past Pregnancies Del. Date GA/Weeks # Preg Succ Route Wgt Sex Labor Lgth Anesthesia Location Prov Complic 01/27/18 40 No Yes vaginal 3288.545 g Male >18 hrs [place], [place] Delivery Date: 01/27/18 Last Updated by: Tonia Camara Epidural didn't work, pitocin oct after stalling at 7 cm, persistent OP, Rolando Vital Signs and Lab Results Vital Signs Most Recent Vital Signs in EMR: Most Recent Vital Signs Temp Pulse Resp BP Pulse Ox 36.9 C 86 16 115/76 99 11/28/23 11:50 11/28/23 11:50 11/28/23 11:50 11/28/23 11:50 11/28/23 11:50 Lab Results Blood Type / Crossmatch: Antibody Screen NEGATIVE 11/26/23 Complete Blood Count: White Blood Count 9.45 10^3/uL (4.4-10.8) 11/23/23 10:55 Red Blood Count 3.01 10^6/uL (3.93-5.22) L 11/23/23 10:55 Hemoglobin 9.3 g/dL (11.2-15.7) L 11/23/23 10:55 Hematocrit 28.1 % (36.0-46.0) L 11/23/23 10:55 Platelet Count 320 10^3/uL (130-400) 11/23/23 10:55 Complete Metabolic Panel: No Data to Display Liver Function Panel: No Data to Display Coagulation Panel: No Data to Display Cardiac Panel: No Data to Display Arterial Blood Gas: No Data to Display Venous Blood Gas: No Data to Display Pancreas Panel: No Data to Display Thyroid Panel: No Data to Display Infectious Disease: No Data to Display Blood Cultures: No Data to Display Toxicology Panel: Urine Amphetamines Screen Negative (Negative) 11/19/23 09:20 Urine Benzodiazepines Screen Negative (Negative) 11/19/23 09:20 Urine Barbiturates Screen Negative (Negative) 11/19/23 09:20 Urine Cocaine Screen Negative (Negative) 11/19/23 09:20 Urine Methadone Screen Negative (Negative) 11/19/23 09:20 Urine Opiates Screen Negative (Negative) 11/19/23 09:20 Ur Tricyclic Antidepressants Screen Negative (Negative) 11/19/23 09:20 Ur Tetrahydrocannabinol (THC) Scrn Positive (Negative) A 11/19/23 09:20 Panel: No Data to Display Anesthesia Assessment and Plan Anesthesia History Personal History: No History of Anesthesia Complications Family History: No Family History of Anesthesia Complications Exercise Tolerance Exercise Tolerance: Metabolic Equivalents>4 Pertinent Negatives Pertinent Negatives: No Symptoms of GERD, No Major Cardiovascular Symptoms or Complaints, No Major Pulmonary Symptoms or Complaints and No History of CVA/TIA Cardiac & Pulmonary Exam Cardiac Exam: Normal S1/S2 Heart Sounds Pulmonary Exam: Clear Bilateral Breath Sounds Cardiac and Pulmonary Comment:: Vapes both nicotine and THC. Implantable Cardiac Device Does patient have a Pacemaker or an ICD?: No Airway Exam Known Difficult Airway: No Mallampati Class: 2 Mouth Opening: Normal (> 3cm) Thyromental Distance: Greater than 3 cm Neck Range of Motion: Full ROM Neck Circumference: Normal Teeth Condition: Normal Dentition ASA Classification ASA Score: ASA 2 Emergency Case?: No NPO Status NPO Status: NPO Clears >2 hours, Solids >8 hours Status Status: Confirmed Anesthesia Plan Resuscitation Status: Full Code Anesthesia Technique: Spinal Anesthesia Airway Planned: Natural Airway Monitors Used: Standard Monitors Preoperative Comments:: From prior anesthetic: with history of prior Epidural that pt states did not work well. Details are unclear and patient does not remember specific events after placement. Questions answered. Consented for labor epidural and/or SAB if needed for . MAULIK Miller SAP BASIS ARCHITECT: Patient for elective c/s today. Plan is spinal with intrathecal duramorph
[2023-11-28] MEDS: ceFAZolin 2 GM/50 ML BAG IVPB (15:09)
[2023-11-28] MEDS: Bupivacaine 0.25% Pres-Free 30 ML VIAL (15:32)
--- NOTE | 2023-11-28 15:32 | FALL_PTH ---
PATIENT: Nohemi Rodriguez LOC: OBS U#:[id number] AGE/SX: 28/F ROOM: OBS.304 RE11/28/[address]: Vanesa Cedeno : 1995 BED: A DIS: 11/30/2023 SPEC #: [id number] RECD: 11/28/23 17:40 STATUS: JASVIR REQ #: [id number] CONRAD: 11/28/23 15:[address]: Vanesa Cedeno DEPT: Surgical Specimen RECD BY: Karen Armenta ENTERED: 11/28/23 17:41 SP TYPE: Fall OTHR DR: Araceli Ferrell CNM Tissues: 1 - FALLOPIAN TUBE (STERILIZATION) 2 - FALLOPIAN TUBE (STERILIZATION) Procedures: GROSS AND MICRO LEVEL 2 Comments: [id number]
--- NOTE | 2023-11-28 15:57 | PDOC.OPNB_ITS ---
Date of service: 11/28/23 Time of Service: 15:57 Operative Note Operative Note Delivery Method: Scheduled and Primary NTSV>37 Weeks: Yes DATE OF PROCEDURE: 11/28/23 PRE-OP DIAGNOSES: unsuccessful induction of labor. desires permanent sterilization POST-OP DIAGNOSES: same PROCEDURE: Primary Low Transverse Delivery with bilateral salpingectomy SURGEON: Vanesa Cedeno Assisting Surgeon: Mercedez Jack Anesthesia: spinal Estimated blood loss (mL): 500 Pathology: other (cord blood to lab, bilateral fallopian tubes to pathology.) Complications: None Patient was transported to: floor Patient's condition: stable Indications: 28yo female currently 40w2d EGA who had two admissions for cervical ripening followed by one admission for Oxytocin induction of labor without success in achieving cervical dilation or active labor. Pt requested a primary scheduled delivery rather than another attempt at an induction of labor. She had been counseled during her regarding permanent sterilization and requested a tubal sterilization to be performed at the time of the delivery. Findings: Viable male infant in vertex presentation with clear amniotic fluid. Wt: 9lb1oz Apgars 9/9. Nl uterus, normal fallopian tubes and normal ovaries and pelvis. Placenta normal configuration. Procedure Description: Patient was taken to the operating room she is placed in the sitting position and spinal anesthesia was administered without difficulty. She was then placed in the dorsal supine position with a leftward tilt. SCDs and a Walton catheter to gravity drainage were in place. A vaginal prep with Betadine was performed and the patient was prepped and draped in the usual sterile fashion.Surgical timeout was performed. Preop antibiotics were administered. After a adequate level of anesthesia was achieved a Pfannenstiel skin incision was made approximately 2 cm superior to the pubic symphysis using a scalpel and the underlying subcutaneous tissue dissected using Bovie electrocautery to the level of the rectus fascia. The rectus fascia was then nicked in the midline and the fascial incision extended laterally using Bovie electrocautery. 2 Remi clamps were applied to the superior rectus fascia and the rectus fascia was dissected off of the underlying rectus muscles using Bovie electrocautery and blunt technique. A similar technique was carried out on the inferior rectus fascia. Rectus muscles were then in the midline and the peritoneum entered bluntly. The peritoneal incision was extended laterally using blunt technique. The vesicle-uterine peritoneum over lower uterine segment was incised with curved Oliver scissors and the bladder flap created bluntly. Scalpel was used to incise the lower uterine segment in a transverse fashion. The uterine incision was extended bluntly and the amniotic sac was ruptured with clear amniotic fluid noted. A single gloved hand was placed into the uterine cavity and the head was successfully delivered through the uterine incision followed by the trunk and extremities with the assistance of fundal pressure. The cord was doubly clamped and cut and the infant handed off to the waiting pediatric team. A segment of umbilical cord was obtained and the placenta was extracted with a combination of fundal massage and gentle cord traction. The uterus was exteriorized cleared of all clots and debris and the uterine incision reapproximated with a running lock suture of 0 Vicryl followed by a second imbricating suture of 0 Vicryl. Uterine incision was noted be hemostatic. A LigaSure electrocautery device was used to clamp cauterize and cut the right fallopian tube away from the right mesosalpinx to the level of the uterine cornua. The right fallopian tube was then clamped cauterized and transected from its uterine attachment. A similar procedure was carried out on the contralateral fallopian tube. Both fallopian tubes were noted to be hemostatic at the completion of the procedure. The uterus was returned to the abdomen and the paracolic gutters cleared of all clots and debris. Uterine incision and the along with the bladder flap and the abdominal wall were all inspected and noted to be hemostatic. The rectus fascia was reapproximated with a running suture of 0 Vicryl. space within the subcutaneous tissue closed with a running suture of 2-0 Vicryl. The skin incision was reapproximated with a subcuticular closure of 4-0 Vicryl. Skin glue was applied to the incision and a Mepilex dressing was applied. The uterus was massaged for any remaining clots and debris. The patient was t ransported to recovery area in stable condition. All sponge, lap, and needle counts correct x2.
--- NOTE | 2023-11-28 16:19 | W.ANESPOSTOP ---
Postoperative Evaluation Date, Time and Location Date Performed: 11/28/23 Time Performed: 16:19 Patient Location: Obstetrics Vital Signs Most Recent Imported Vital Signs: Most Recent Vital Signs Temp Pulse Resp BP Pulse Ox 36.9 C 86 16 115/76 99 11/28/23 11:50 11/28/23 11:50 11/28/23 11:50 11/28/23 11:50 11/28/23 11:50 Assessment Mental Status: Awake (Alert & Oriented to Patient Baseline) Airway and Respiratory Function: Patent airway with normal (patient baseline) respiratory exam Cardiovascular Function: Hemodynamically Stable Hydration Status: Adequately Hydrated Nausea & Vomiting: No Nausea or Vomiting Pain: Pt. Denies Any Pain Peripheral Nerve Block: Patient did not receive a nerve block Postoperative Comments:: Unresolved SAB at 1615.
[2023-11-28] MEDS: Ketorolac 30 MG/ML VIAL IVP (18:15)
[2023-11-29] VITALS (16 sets, daily range): BP systolic 113–133; BP diastolic 76–83; PULSE 74–83; RESP 16–18; TEMP 36.8–37.2; O2SAT 98–99
[2023-11-29] MEDS: Ketorolac 30 MG/ML VIAL IVP ×3 (00:05→12:16)
[2023-11-29] MEDS: Lactated Ringers 1,000 ML 120 ML IV (03:41)
[2023-11-29 07:47] LABS: Abs Immature Grans 0.06 10^3/uL (0.0-0.06); Absolute Basophil Count 0.03 10^3/uL (0.0-0.2); Absolute Lymphocyte Count 1.55 10^3/uL (1.2-3.4); Absolute Monocyte Count 0.53 10^3/uL (0.1-0.8); Basophils % 0.2 %; Eosinophils % 0.4 %; HCT 26.8 % (36.0-46.0); HGB 8.8 g/dL (11.2-15.7); Immature Grans % 0.4 %; Lymphocytes % 11.4 %; MCH 30.4 pg (27.0-33.0); MCHC 32.8 % (32.0-36.0); MCV 93 fL (80-95); MPV 9.4 fL (8.0-11.0); Monocytes % 3.9 %; Neutrophils % 83.7 %; Platelet Count 309 10^3/uL (130-400); RBC 2.89 10^6/uL (3.93-5.22); RDW 14.1 % (11.7-14.6); RDW-SD 47.5 fL; WBC 13.63 10^3/uL (4.4-10.8)
[2023-11-29 07:54] LABS: Absolute Eosinophil Count 0.05 10^3/uL (0.0-0.7); Absolute Neutrophil Count 11.41 10^3/uL (1.2-6.7)
--- NOTE | 2023-11-29 10:09 | OBPPV_ITS ---
Date of service: 11/29/23 Time of Service: 10:09 Assessment and Plan Assessment and plan (1) delivery delivered: Status: Acute Assessment and plan: POD1. Satisfactory recovery. Pt will get OOB today, assess for spontaneous voiding and assist with care of . H/H stable. Subjective Subjective Patient comments: No complaints, Pain well controlled and Tolerating diet [place] baby status: Doing well, Bottle feeding well and Strong Bonding Observed [place] feeding status: Exclusively formula feeding (pumping breast milk and bottle feeding infant.) Exam Physical Exam Vital signs: Temp Pulse Resp BP Pulse Ox 98.2 F 83 16 113/76 99 11/29/23 04:32 11/29/23 04:32 11/29/23 06:30 11/29/23 04:32 11/29/23 04:32 Vital Signs Reviewed: Yes Notable Details: no issues with dizziness or intolerance of ambulation. Constitutional Constitutional: no acute distress HEENT Exam HEENT Exam: Normal Neck Exam Neck Exam: Normal Respiratory Exam Respiratory Exam: Normal Cardiovascular Exam Cardiovascular Exam: Normal Abdominal Exam Comments: non-tender. Fundal Exam Fundus: Below Umbilicus and Firm Rectal Exam Rectal Exam: Not Done Extremities Exam Extremity Exam: Normal Back/Spine/Pelvis Exam Back Exam: Not Done Skin Exam Skin Exam: Normal Neurological Exam Neurological Exam: Normal Psychiatric Exam Psychiatric Exam: Normal Results Hemoglobin/Hematocrit: Hgb 8.8 g/dL (11.2-15.7) L 11/29/23 07:20 Hct 26.8 % (36.0-46.0) L 11/29/23 07:20 Abnormal Lab Findings: Abnormal Labs 11/29/23 07:20 WBC 13.63 H RBC 2.89 L Hgb 8.8 L Hct 26.8 L Absolute Neutrophils 11.41 H
[2023-11-29] MEDS: Acetaminophen 325 MG TAB 650 MG PO ×2 (16:09→21:42)
[2023-11-29] MEDS: Ibuprofen 600 MG TAB PO ×2 (16:10→21:41)
[2023-11-29] MEDS: Docusate Sodium 100 MG CAP PO (17:00)
[2023-11-30] MEDS: Acetaminophen 325 MG TAB 650 MG PO ×3 (03:11→12:44)
[2023-11-30 08:39] VITALS: BP 117/71; PULSE 74; RESP 18; TEMP 37.1; O2SAT 98
[2023-11-30] MEDS: Docusate Sodium 100 MG CAP PO (08:45)
[2023-11-30] MEDS: Ibuprofen 600 MG TAB PO (08:45)
--- NOTE | 2023-11-30 10:16 | DSE_ITS ---
Date of service: 11/30/23 Time of Service: 10:17 DS: Diagnosis Discharge Diagnosis (1) delivery delivered: Status: Acute Discharge Plan Disposition Patient Disposition: Home Condition: Improving Discharge Details Reason For Visit: delivery Admit Date/Time: 11/28/23 10:35 Admit Provider: Vanesa Cedeno Attending Provider: Vanesa Cedeno Primary Care Provider: Araceli Ferrell Hospital Course Hospital Course: 28yo female admitted for elective scheduled LTCS at 40w2d EGA. Pt had two admissions for cervical ripening followed by one admission for Oxytocin induction of labor without success in achieving cervical dilation or active labor. Pt requested a primary scheduled delivery rather than another attempt at an induction of labor. She had been counseled during her regarding permanent sterilization and requested a tubal sterilization to be performed at the time of the delivery. Discharged to home on POD 2. Pumping breast milk and bottle feeding it to who will be name Eugenio by his parents. Pt will f/u in one week for dressing removal. Home Meds and New Rx's Prescriptions: No Action Gummies 400 mcg-35 mg- 25 mg-5 mg tablet,chewable 1 tab PO DAILY Blood Builder 1 tab PO DAILY Qty: 30 0RF Cimzia 400 mg/2 mL (200 mg/mL x 2) syringe kit 400 mg subcut Q2W Qty: 1 0RF Rx Instructions: administer as 2 equally divided doses at 2 different sites in abdomen or thigh ferrous sulfate 325 mg (65 mg iron) tablet 325 mg PO DAILY Qty: 60 4RF ferrous sulfate 325 mg (65 mg iron) tablet,delayed release (DR/EC) 325 mg PO DAILY Patient Comments: TAKE 1 TABLET BY MOUTH ONCE DAILY Discharge Instructions Additional Instructions: Ibuprofen 600mg every six hours as needed for pain. Prescription has been faxed to [facility] in [place]. Tylenol 325mg every 6 hours as needed for pain. May be taken with Ibuprofen. OK to shower with bandage in place. Activity:: Activity as Tolerated Equipment/Supplies:: No Equipment Needed Diet:: As Tolerated Discharge Orders Discharge Orders: Discharge Order (Routine); Ordered 11/30/23 Ordered By: Vanesa Cedeno OB:DS Summary Summary Delivery Method: Primary Episiotomy Description: None Laceration Description: None Laceration Extension: N/A complications OB DS: none Contraception Discussed Contraception Discussed: Yes, Infant Gender-Baby A: Male (Eugenio) weight: 9 lb 0.8 oz Status at Discharge Functional status at discharge: independent ambulation Overall status at discharge: patient is progressing back to baseline Mental Status: mental status grossly normal Speech and Movement: speech and movement normal Mood: congruent mood Affect: normal affect Quality:SDOH Health Related Social Needs: No Data to Display Exam Physical Exam Vital signs: Temp Pulse Resp BP Pulse Ox 98.7 F 74 18 117/71 98 11/30/23 08:39 11/30/23 08:39 11/30/23 08:39 11/30/23 08:39 11/30/23 08:39 Constitutional Constitutional: no acute distress Comments: feels well. Wants discharge to home. HEENT Exam HEENT Exam: Normal Neck Exam Neck Exam: Normal Respiratory Exam Respiratory Exam: Normal Cardiovascular Exam Cardiovascular Exam: Normal Abdominal Exam Abdomen: Tender (last eveing, may have done too much) Fundal Exam Fundus: Below Umbilicus and Firm Rectal Exam Rectal Exam: Not Done Extremities Exam Extremity Exam: Normal Back/Spine/Pelvis Exam Back Exam: Normal Skin Exam Skin Exam: Normal Neurological Exam Neurological Exam: Normal Psychiatric Exam Psychiatric Exam: Normal PFSH All Active Problems (Updated 11/29/23 @ 10:11 by Vanesa Cedeno MD) delivery delivered (Acute) Group B streptococcal infection during (Acute) Anemia affecting (Acute) Current nicotine vaping on some days (Acute) Marijuana use during (Acute) BMI 31.0-31.9,adult (Acute) Rahman's cyst of knee (Acute) right Drug exposure, gestational (Acute) (Acute) Rheumatoid arthritis (Chronic) Medical History (Updated 11/29/23 @ 10:11 by Vanesa Cedeno MD) Preop examination Low TSH level History of anemia Family history of thyroid disease in grandmother gr-mother had thyroidectomy History of depression Treated with lorazepam and buspirone History of depression no meds currently Family History (Updated 06/23/23 @ 14:43 by Araceli Dubon CNM) Paternal Grandmother Thyroid condition partial thyroidectomy Maternal Grandmother Heart disease Father Hypertension Mother Depression Other Hyperlipidemia Social History (Updated 05/05/23 @ 09:40 by Jeny Eaton RN) Smoking/Tobacco Use Status: Current every day Tobacco Type: e-cigarettes Smoking risk assessment performed?: Yes Alcohol Intake: never Substance use type: marijuana Housing: house Current gender identity: female Do you feel safe at home: Yes Do you feel safe in your relationship?: No Female Reproductive History Menstrual Age of Menarche: 8 Duration of menses: 6-7 days control method: none History History 2 Para 2 Hx # Term Pregnancies 2 Multiple births 0 Hx # Pregnancies 0 Ectopic pregnancies 0 AB induced 0 Hx Number of Living Children 2 AB spontaneous 0 Past Pregnancies Del. Date GA/Weeks # Preg Succ Route Wgt Sex Labor Lgth Anesth esia Location [facility] 01/27/18 40 No Yes vaginal 7 lb 4 oz Male >18 hrs [place], [place] 12/26/23 41 No Yes 9 lb 1 oz Male aoc /KJ Delivery Date: 01/27/18 Last Updated by: Tonia Camara Epidural didn't work, pitocin oct after stalling at 7 cm, persistent OP, Rolando Delivery Date: 12/26/23 Last Updated by: Vanesa Cedeno MD PLTCS and tubal sterilization after unsuccessful attempt at IOL x2. Eugenio DS: Data Vitals/I&O Vitals and I&O: Vital Signs Temperature 98.7 F 11/30/23 08:39 Temperature Source Oral 11/30/23 08:39 Pulse 74 11/30/23 08:39 Pulse Rhythm Regular 11/29/23 20:28 Respiratory Rate 18 11/30/23 08:39 Respiratory Depth Normal 11/29/23 09:00 Blood Pressure 117/71 11/30/23 08:39 Blood Pressure Mean 86 11/30/23 08:39 Pulse Oximetry 98 11/30/23 08:39 Oxygen Delivery Method Room Air 11/28/23 11:50 Oxygen Flow Rate 0 11/28/23 11:50 Pain Level 3 11/30/23 03:11 Intake & Output 11/29/23 11/29/23 11/30/23 11:59 23:59 11:59 Output Total 2149 / 215 Balance -2149 / -2149 Output: Urine 2149 Other: Urine Color Light Krupa Pale
== END 2023-11-30 14:40 | disposition home or self-care (01) | DRG 785 ==
PROVIDERS: Admitting Provider Obstetrics & Gynecology Gynecology; PCP Advanced Practice Midwife; Visit Provider Obstetrics & Gynecology Gynecology
PROC: 10D00Z1 Extraction of Products of Conception, Low, Open Approach (ICD-10-PCS; CPT 59514; principal; 2023-11-28 13:15)
DX: O48.0 Post-term pregnancy (principal); Z37.0 Single live birth; O61.8 Other failed induction of labor; Z3A.41 41 weeks gestation of pregnancy; M06.9 Rheumatoid arthritis, unspecified; O99.824 Streptococcus B carrier state complicating childbirth; O99.02 Anemia complicating childbirth; D64.9 Anemia, unspecified; Z30.2 Encounter for sterilization; O99.334 Smoking (tobacco) complicating childbirth; F17.290 Nicotine dependence, other tobacco product, uncomplicated; D89.89 Other specified disorders involving the immune mechanism, not elsewhere classified; O75.89 Other specified complications of labor and delivery
CPT/HCPCS: 59514; 58700; 36415; 85025; 88302; J0456; J0665; J0690; J1885; J2274; J2371; J2405; J3010